=== PATIENT | male | born 1970 | race Caucasian/White ===

== ENCOUNTER 2021-11-04 07:30 | Emergency (ER) | payer OTHER ==
[~2021-11-04] VITALS: Ht 175.3 cm; Wt 74.8 kg
--- NOTE | 2021-11-04 08:35 | NUR ---
at bedside for evaluation.
--- NOTE | 2021-11-04 08:46 | NUR ---
Patient asked, "Can i go smoke outside." When advised the hospital protocol of going in and out of the emergency department, while receiving treatment. Patient then stormed out of the ED. A/Ox4, speech is clear, ambulates with steady gait. Patient eloped from the department. ERMD aware.
== END 2021-11-04 08:48 | disposition left against medical advice (07) ==
LOC: ER 07:30
DX: L03.019 Cellulitis of unspecified finger (principal); Z59.00 Homelessness unspecified; Z90.49 Acquired absence of other specified parts of digestive tract; Z88.0 Allergy status to penicillin
CPT/HCPCS: A4663

== ENCOUNTER 2021-11-11 13:47 | Emergency (ER) | payer OTHER ==
[~2021-11-11] VITALS: Ht 175.3 cm; Wt 68.5 kg
[2021-11-11] MEDS ORDERED: SWABABLE VALVE TRANSFER SET EA MC ONE (14:27)
[2021-11-11] MEDS ORDERED: IOHEXOL 300MG/ML 100 ML INFUS..BTL ONE (14:27)
[2021-11-11] MEDS ORDERED: IV NORMAL SALINE 250 ML IV ONE (14:28)
[2021-11-11] MEDS ORDERED: MORPHINE SULFATE 4 MG/1 ML DISP.SYRIN IV ONE (14:30)
[2021-11-11] MEDS ORDERED: MORPHINE SULFATE 4 MG/1 ML DISP.SYRIN ONE (14:59)
[2021-11-11 15:03] LABS: HEMATOCRIT 44.4 % (36.7-47.1); MEAN CORPUSCULAR HEMOGLOBIN 31.4 uug (23.8-33.4); MEAN CORPUSCULAR VOLUME 92.8 fL (73.0-96.2); PLATELET COUNT (AUTO) 304 K/uL (152-348)
[2021-11-11 15:07] LABS: CREATININE 0.7 mg/dL (0.6-1.3); POTASSIUM 4.2 mmol/L (3.5-5.1)
[2021-11-11 15:16] LABS: BILIRUBIN,TOTAL 0.2 mg/dL (0.2-1.0); TOTAL PROTEIN, SERUM 7.6 g/dL (6.4-8.2)
[2021-11-11] MEDS ORDERED: ACETAMINOPHEN 325 MG TABLET PO ONE (15:45)
[2021-11-11] MEDS ORDERED: ACETAMINOPHEN 325 MG TABLET ONE (16:16)
--- NOTE | 2021-11-11 16:45 | NUR ---
Patient does not wish to proceed with medical care recommended by Dr. Hernandez. Patient given information related to possible complications, up to and including , which could occur as a result of leaving the hospital at this time. Patient verbalizes understanding of risks involved due to leaving against medical advice. Patient refused to sign AMA form.
[2021-11-11 17:32] VITALS: BP 100/72
== END 2021-11-11 16:45 | disposition left against medical advice (07) ==
LOC: ER 13:47
DX: R10.31 Right lower quadrant pain (principal); Z59.00 Homelessness unspecified; Z90.49 Acquired absence of other specified parts of digestive tract
CPT/HCPCS: 99285; 74177; 96374; 80053; 85025; 36415; Q9967; J2270; A4663

== ENCOUNTER 2022-05-31 20:39 | Emergency (ER) | payer OTHER ==
[~2022-05-31 20:39] MED LIST: ALBU8HFA4 INH
--- NOTE | 2022-05-31 21:36 | NUR ---
Pt not in waiting room.
== END 2022-05-31 21:37 | disposition left against medical advice (07) ==
LOC: ER 20:39
DX: Z53.21 Procedure and treatment not carried out due to patient leaving prior to being seen by health care provider (principal)

== ENCOUNTER 2022-11-25 09:30 | Emergency (ER) | payer OTHER ==
[~2022-11-25] VITALS: Ht 175.3 cm; Wt 75.3 kg
[2022-11-25 11:27] LABS: *BILIRUBIN,URIN NEGATIVE (NEGATIVE); *BLOOD, URINE NEGATIVE (NEGATIVE); *CLARITY,URINE CLEAR (CLEAR); *COLOR,URINE YELLOW (YELLOW); *KETONES,URINE NEGATIVE (NEGATIVE); *PROTEIN,URINE NEGATIVE (NEGATIVE); *UROBILINOGEN,URINE 0.2 E.U./dl (NORMAL); LEUKOCYTE ESTERASE ,URINE NEGATIVE (NEGATIVE); NITRITE, URINE NEGATIVE (NEGATIVE); UGLUCOSE NEGATIVE (NEGATIVE)
[2022-11-25] MEDS ORDERED: IBUP-1957 PO (12:35)
[2022-11-25] MEDS ORDERED: ALBU8HFA4 INH (12:35)
[2022-11-25] MEDS ORDERED: ALBU8.5H8 INH (12:35)
[2022-11-25 12:49] VITALS: BP 117/71; O2SAT 97
== END 2022-11-25 12:49 | disposition home or self-care (01) ==
LOC: ER 09:30
DX: M19.09 Primary osteoarthritis, other specified site (principal); Z90.49 Acquired absence of other specified parts of digestive tract; Z59.00 Homelessness unspecified; Z79.1 Long term (current) use of non-steroidal anti-inflammatories (NSAID); Z79.899 Other long term (current) drug therapy
CPT/HCPCS: 72125; 73030; A4663